=== PATIENT | female | born 1990 | race Caucasian/White ===

== ENCOUNTER 2018-12-07 13:11 | Emergency (ER) | payer OTHER ==
--- NOTE | 2018-12-07 16:01 | ED Physician Documentation ---
History of Present Illness - Stated complaint Stated Complaint: ALLERGIC REACTION - Chief complaint Chief Complaint: Allergic Rx - Additonal information Additional information: hx from pt shortly after eating lunch developed rash itchign and scratchy throat came to ED thankfully sx subsided not sure what she ight have reacted to no prior allergies no new food lotions deterg etc otherwise healthy Review of Systems Constitutional: denies: Fever Ears: denies: Ear pain Throat: reports: Other (scratchy throat) Cardiac: denies: Chest pain / pressure, Palpitations Respiratory: denies: Dyspnea, Cough GI: denies: Abdominal Pain : denies: Now EGA Skin: reports: Rash PD PAST MEDICAL HISTORY - Past Medical History Past Medical History: No Cardiovascular: None Respiratory: None Neuro: None Endocrine/Autoimmune: None GI: None COUNSELOR SUPERVISOR: None : None HEENT: None Psych: None Musculoskeletal: None Derm: None - Past Surgical History Past Surgical History: No - Present Medications Home Medications: Ambulatory Orders Medication Instructions Recorded Confirmed Loratadine [Claritin] 10 mg PO DAILY #2 tablet 12/07/18 predniSONE [Deltasone] 60 mg PO DAILY 2 Days #6 tablet 12/07/18 - Allergies Allergies/Adverse Reactions: Allergies Allergy/AdvReac Type Severity Reaction Status Date / Time No Known Drug Allergies Allergy Verified 12/07/18 15:01 - Social History Does the pt smoke?: No Smoking Status: Never smoker Does the pt drink ETOH?: Yes ETOH Use: Wine Does the pt have substance abuse?: No - Immunizations Immunizations are current?: Yes - POLST Patient has POLST: No PD ED PE NORMAL - Vitals Vital signs reviewed: Yes - HEENT HEENT: Other (no oral edema) - Neck Neck: Supple, no meningeal sign - Cardiac Cardiac: RRR - Respiratory Respiratory: No respiratory distress, Clear bilaterally - Abdomen Abdomen: Soft, Non tender - Derm Derm: Normal color, No rash, Other (per cell phone pic 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, no petecchiae or purpura) - Neuro Neuro: Alert and oriented X 3 Results - Vitals Vitals: Vital Signs - 24 hr 12/07/18 13:16 Temperature 36.6 C Heart Rate 91 Respiratory 16 Rate Blood Pressure 119/44 L O2 Saturation 98 Oxygen O2 Source Room air Departure - Departure Disposition: 01 Home, Self Care Clinical Impression: Allergic reaction Qualifiers: Encounter type: initial encounter Qualified Code(s): T78.40XA - Allergy, unspecified, initial encounter Condition: Good Instructions: ED Allergic Reaction General Other Prescriptions: Loratadine [Claritin] 10 mg PO DAILY #2 tablet predniSONE [Deltasone] 60 mg PO DAILY 2 Days #6 tablet Comments: I am not sure what you had an allergic reaction to. Thankfully you are getting better on your own I have prescribed medication for you to take once a day for three days. If you have more reactions you should see an national park ranger to be skin tested Return if worse Forms: Activity restrictions
[2018-12-07] MEDS ORDERED: predniSONE 20 MG TABLET PO STA (16:03)
[2018-12-07 16:04] VITALS: BP 115/72
== END 2018-12-07 16:23 | disposition home or self-care (01) ==
LOC: ED 13:11
DX: T78.40XA Allergy, unspecified, initial encounter (principal)
CPT/HCPCS: 99283; J7512

== ENCOUNTER 2019-04-02 11:02 | Outpatient (CLI) | payer OTHER | END 2019-04-02 11:03 | disposition home or self-care (01) | LOC: SC 11:02 | PROVIDERS: ATTEND Internal Medicine Pulmonary Disease | DX: G47.10 Hypersomnia, unspecified (principal); R06.83 Snoring; G47.8 Other sleep disorders; R41.89 Other symptoms and signs involving cognitive functions and awareness; R51 Headache; R06.81 Apnea, not elsewhere classified; E66.9 Obesity, unspecified; Z68.30 Body mass index [BMI] 30.0-30.9, adult | CPT/HCPCS: 99203; 99212 ==

== ENCOUNTER 2019-04-20 20:35 | Outpatient (CLI) | payer OTHER | END 2019-04-20 20:36 | disposition home or self-care (01) | LOC: SC 20:35 | PROVIDERS: ATTEND Internal Medicine Pulmonary Disease | DX: G47.33 Obstructive sleep apnea (adult) (pediatric) (principal); E66.9 Obesity, unspecified; Z68.30 Body mass index [BMI] 30.0-30.9, adult | CPT/HCPCS: 95811 ==

== ENCOUNTER 2019-06-11 13:10 | Outpatient (CLI) | payer OTHER ==
--- NOTE | 2019-06-11 13:36 | CONSULTATION NOTE ---
Information from patient questionnaire entered by Dedra Grove. I have reviewed and concur with the information entered by Dedra Grove. This document represents the service I personally performed and the decisions made by me, Lina Serrano MD, [facility]. - History of Present Illness returned for follow up of the split-night polysomnography she had on 04/20/2019. The polysomnography showed the following: The quality of the study is good. CPAP was initiated 147.7 minutes into the study and titrated up from 4 cmH2O and titrated up to CPAP at 8 cmH2O. DIAGNOSTIC: The patient had normal sleep efficiency. The sleep architecture was abnormal for sleep fragmentation and reduced amount of time spent in REM sleep. Respiratory monitoring showed very severe obstructive sleep apnea-hypopnea (AHI = 62.6) associated with frequent arousals, oxyhemoglobin desaturation and mild hypoxia (carisa oxygen saturation of 83%). The patient only slept supine during this study. Snoring was loud in intensity. There was no significant periodic limb movement of sleep. THERAPEUTIC: CPAP at 8 cmH2O appeared to be optimal (AHI of 0 per hour on the pressure). There was supine REM sleep on the pressure. Oxygen saturation was normal throughout the night. Lower CPAP settings allowed a few residual respiratory events. The patient appeared to have tolerated positive airway pressure therapy very well. The patients sleep efficiency was normal. The sleep architecture was normal. There was no significant periodic limb movement of sleep. Cardiac rhythm was normal sinus rhythm without significant arrhythmia. No abnormal behavior (parasomnia) observed during the night. The patient was informed of these findings. I explained to her the pathophysiology behind obstructive sleep apnea. We then spent quite a bit of time discussing different treatment options. For mild obstructive sleep apnea, surgery and oral appliance are alternatives to nasal CPAP therapy but in moderate or severe cases, nasal CPAP is the most effective and reliable treatment. After some discussion, she opted to go with the nasal CPAP therapy. I explained to her how CPAP machine works and what to expect when using the machine. She is encouraged to use CPAP every night especially in the first 2 to 3 nights in order to get used to it. She should call me or her CPAP supplier to discuss any mechanical problem that may occur. If she snores while wearing the CPAP or feels like she needs more air from the machine, she should notify me and I will increase the pressure. Initial Lucas Sleepiness Scale score: 7 Current Lucas Sleepiness Scale score: 16 - Allergies/Medications Allergies and home medications reviewed: Yes - Review of Systems Review of systems same as previous: Yes - Impression 1. Obstructive Sleep Apnea-Hypopnea Syndrome, very severe, associated with mild hypoxemia and sleep fragmentation. Obviously this is the cause of the patients symptoms of frequent awakenings, unrefreshed sleep, and excessive daytime sleepiness. As mentioned above, the patient will be started on autoCPAP set at 4 - 8 cmH2O. I anticipate good treatment compliance. - Plan 1. Prescription made for an autoCPAP with heated humidifier 2. Attempt to lose weight. 3. Be careful when driving until her sleepiness resolves completely on nasal CPAP therapy. 4. Return in one month for follow up. I will assess her response and compliance at that time.
== END 2019-06-11 13:11 | disposition home or self-care (01) ==
LOC: SC 13:10
PROVIDERS: ATTEND Internal Medicine Pulmonary Disease
DX: G47.33 Obstructive sleep apnea (adult) (pediatric) (principal)
CPT/HCPCS: 99212; 99213

== ENCOUNTER 2021-04-23 12:09 | Emergency (ER) | payer OTHER ==
--- NOTE | 2021-04-23 12:49 | XRAY Report ---
PROCEDURE: Foot 3 View RT INDICATIONS: footpain after running; hx of plantar fascitis TECHNIQUE: 3 views of the foot were acquired. COMPARISON: None FINDINGS: Bones: No fractures or dislocations. No suspicious bony lesions. Small plantar calcaneal bone spur. Soft tissues: No tibiotalar joint effusion. Achilles tendon appears normal. IMPRESSION: No fracture. No osseous lesion. If there are persistent symptoms or continued clinical concern for pa thology, then repeat plain film radiographs (7-10 days) or advanced imaging (CT, MR, bone scan) shoul d be considered for further evaluation. Reviewed by: Roxanne Bradshaw MD, PhD on 04/23/2021 12:48 PM PDT Approved by: Roxanne Bradshaw MD, PhD on 04/23/2021 12:48 PM PDT Station ID: [id number]
--- NOTE | 2021-04-23 13:21 | ED Physician Documentation ---
History of Present Illness - Stated complaint Stated Complaint: RT FOOT PAIN - Chief complaint Chief Complaint: Ext Problem - Additonal information Additional information: 30-year-old female presents the emergency department for evaluation of acute right foot pain that she suspects may be plantar fasciitis. She Denies any inciting event yesterday during the run but this morning when she woke up she had a lot of pain in the bottom of her heel that radiated to the forefoot and up the ankle. No swelling or deformity. She is in the [place] wears boots during the day but often climbs ladders and her job duties. Review of Systems Constitutional: reports: Reviewed and negative Eyes: reports: Reviewed and negative Nose: reports: Reviewed and negative Throat: reports: Reviewed and negative Cardiac: reports: Reviewed and negative Respiratory: reports: Reviewed and negative GI: reports: Reviewed and negative : reports: Reviewed and negative Skin: reports: Reviewed and negative Musculoskeletal: reports: Extremity pain (right foot) PD PAST MEDICAL HISTORY - Past Medical History Cardiovascular: None Respiratory: None Neuro: None Endocrine/Autoimmune: None GI: None CAR WASH ATTENDANT: None : None HEENT: None Psych: None Musculoskeletal: None Derm: None - Past Surgical History Past Surgical History: No - Present Medications Home Medications: Ambulatory Orders Medication Instructions Recorded Confirmed Loratadine [Claritin] 10 mg PO DAILY #2 tablet 12/07/18 predniSONE [Deltasone] 60 mg PO DAILY 2 Days #6 tablet 12/07/18 Fexofenadine HCl [Cait Allergy] 1 tab ORAL PRN PRN 05/30/19 05/30/19 - Allergies Allergies/Adverse Reactions: Allergies Allergy/AdvReac Type Severity Reaction Status Date / Time No Known Drug Allergies Allergy Verified 04/23/21 12:12 - Social History Does the pt smoke?: No Smoking Status: Never smoker Does the pt drink ETOH?: Yes Does the pt have substance abuse?: No - Immunizations Immunizations are current?: Yes - POLST Patient has POLST: No PD ED PE EXPANDED - General General: Alert, No acute distress - Extremities Extremities: Right foot (No swelling or erythema. There is tenderness on the sole of the foot from the heel to the ball. Patient has a normal gait. Full range of motion at the ankle joint. 2+ DP pulse.) Results - Vitals Vitals: Vital Signs - 24 hr 04/23/21 12:12 Temperature 36.5 C Heart Rate 96 Respiratory 16 Rate Blood Pressure 133/90 H O2 Saturation 99 Oxygen O2 Source Room air - Rads (name of study) right foot Radiology: Final report received (No acute findings.) PD MEDICAL DECISION MAKING - ED course Complexity details: reviewed results, re-evaluated patient, d/w patient ED course: 30-year-old female presents emergency department for evaluation of right foot pain after running yesterday. X-ray shows no fracture however she has pain along the plantar fascia area without swelling or erythema. Her exam is consistent with plantar fasciitis. At the bedside we did cross taper the foot to help support the plantar fascia and she felt that it improved her symptoms. I have encouraged her to continue follow-up with [facility] as this seems to be a recurrent problem she may benefit from referral to podiatry. Emergent return precautions were discussed. Departure - Departure Disposition: 01 Home, Self Care Clinical Impression: Plantar fasciitis of right foot Condition: Stable Record reviewed to determine appropriate education?: Yes Instructions: Plantar Fasciitis Tx Comments: Janee you were seen in the emergency department today for evaluation of right foot pain. As we discussed at the bedside your history and exam is consistent with plantar fasciitis. Since this seems to be a recurrent problem you would benefit from referral to a freezing machine operator. Please discuss this with [facility]. I do recommend that you take ibuprofen with food 3 times a day for foot pain. I would also like you to try and taper your foot as shown in the emergency department when out of bed. Return to the emergency department for fevers, foot swelling, redness or any other emergent concerns.
[2021-04-23 13:29] VITALS: BP 109/68
== END 2021-04-23 13:28 | disposition home or self-care (01) ==
LOC: ED 12:09
DX: M72.2 Plantar fascial fibromatosis (principal)
CPT/HCPCS: 99283

== ENCOUNTER 2023-08-10 14:59 | Outpatient (CLI) | payer OTHER ==
--- NOTE | 2023-08-10 15:40 | Sleep Patient Instructions ---
Sleep Center Visit Summary - Patient Visit Information Reason for Visit: Initial consult for evaluation of sleep disordered breathing and other sleep issues. - Patient Instructions Instructions Attached: Sleep Study, Sleep Clinic Visit, Sleep Study Home Monitor Additional Instructions: You will be completing a sleep study, either an in-lab polysomnography (PSG) or home sleep study (HST). You will follow-up in the sleep care office after the sleep study is completed to hear the results and talk about therapy, if needed. You will be called by our office staff to schedule this appointment, but you may contact us with any questions. - Clinic Information Contact: [facility] [address] [place] [address] [email or web address] T: [phone]
--- NOTE | 2023-08-10 15:46 | SLEEP CARE CONSULTATION ---
Information from patient questionnaire entered by Basim Rocha. I have reviewed and concur with the information entered by Basim Rocha. This document represents the service I personally performed and the decisions made by me, Pilar Salvador ARNP. History of Present Illness Service Date and Time: 08/10/2023 1459 Reason for Visit: New patient, Previously diagnosed sleep apnea Chief Complaint: reports: Insomnia, Unrefreshed sleep, Snoring, Excessive daytime sleepiness, Observed pauses in breathing, Fatigue, Frequent awakenings at night Date of Onset: 4YRS Usual bedtime: VARIES Time it takes to fall asleep: SOMETIMES RIGHT AWAY SOMETIMES HRS Snores at night: Yes Observed to quit breathing while asleep: Yes Sleeps alone due to snoring: No Number of times waking at night: 2-3 Reasons for waking at night: reports: Gasping for air, Other (UNKNOWN). denies: Choking, Snoring Toss, Turn, or Twitch while sleeping: Yes Recalls having dreams: Yes Usually gets out of bed at: VARIES Feels refreshed in the morning: No Morning headache: Yes (2-3 times a week; last about a couple hours in the morning) Sleepy or fatigued during the day: Yes Ever fallen asleep while driving: No Takes day naps: Yes (with day shift, will take nap daily for an hour) Dreams during day naps: No Prior sleep studies: Yes Year and Where: 2017 [facility] Additional HPI information: I had the pleasure of seeing KENY ANGUIANO today regarding the possibility of her having a sleep disorder. She had a previous sleep study dated 04/20/2019 here at [facility] showing very severe obstructive sleep apnea with AHI of 62.6 but was never set up with a PAP machine. 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 She is now returning to try and get things done. Her current complaints are sleepiness, fatigue, frequent night awakenings, insomnia, observed pauses in breathing, headache, snoring and unrefreshed sleep. She is in the and her work schedule shifts from day to night, her sleep schedule also varies. She states she does not wake up feeling rested and she is always tired throughout the day. She has no energy to do things like exercise. She wakes up throughout the night and sometimes is not able to sleep at all for hours. - Parasomnia Symptoms Ever been unable to move upon waking from sleep: No Walks in sleep: No Talks in sleep: No Ever acted out dreams in sleep: No Ever felt weak in the knees when startled or emotional: No Bothered by creepy, crawly, restless sensations in legs: No Problems with memory or concentration: Yes (concentration mostly) Subjective Initial Gibson Sleepiness Scale score: 16 (08/10/23) Past Medical History Past Medical History: reports: Other (no significant medical history) Social History The patient's occupation is a AM. Patient is and lives in . Have you smoked in the past 12 months: No Alcohol use: No Caffeine use: Yes Caffeine amount and frequency: 2 CUPS COFFEE DAILY Family History Family history of sleep disordered breathing: Yes Family Hx Sleep Apnea: Father: Snoring, Sleep apnea - Untreated Allergies and Home Medications Known drug allergies: No Drug allergies reviewed: Yes Home medication list reviewed: Yes Allergy and home medication list: Allergies No Known Drug Allergies Allergy (Verified 08/09/23 14:21) Home Medications Medication Instructions Recorded Confirmed Last Taken Type No Known Home Medications 08/10/23 08/10/23 Unknown History Review of Systems Weight gain over past 5 years: 30 Cardiovascular: denies: high blood pressure Gastrointestinal: denies: heartburn Neurological: reports: headaches Psychiatric: denies: anxiety, depression Ear/Nose/Throat: reports: wisdom teeth removed. denies: tonsillectomy Endocrine: denies: thyroid disease Immunologic: denies: allergies to food or environment Physical Exam Vital signs obtained and entered by: BASIM Maya MA Blood Pressure: 166/101 (LEFT) Cuff size: wrist Heart Rate: 92 O2 Saturation: 98 Height: 5 ft 3 in Weight: 195 lb 3.2 oz Body Mass Index: 34.5 BMI Classification: Obese Neck circumference: 16.25 Mouth and throat: narrow oropharynx Soft palate: long Hard palate: normal Uvula: normal Uvula visualization: 25% Mallampati Class III Tongue: enlarged in size with teeth rothman on lateral edges Tonsils: 2+ Neck: normal w/o lymphadenopathy or thyromegaly Heart: regular rate and rhythm Lungs: clear bilaterally Impression and Plan 1. Suspected Obstructive Sleep Apnea-Hypopnea Syndrome, as previously diagnosed and as still suggested by a history of loud and irregular snoring, observed cessation of breath while asleep, gasping or choking in sleep, morning headache, frequent awakening during the night, unrefreshed sleep, cognitive impairment, and excessive daytime sleepiness. I recommend proceeding to polysomnography to confirm the diagnosis and to assess severity. If the patient has significant sleep disordered breathing, a manual CPAP titration study will also be performed to find the optimal treatment pressure. I informed the patient of what the sleep studies involve and after some discussion, obtained agreement to proceed. The pathophysiology of obstructive sleep apnea-hypopnea syndrome was discussed with the patient and health risks of cardiovascular and cerebrovascular disease if not treated. Risks of drowsy driving discussed in detail and patient advised to avoid long distance driving and to tie puller at the first sign of drowsiness. Patient agreed to plan. * Schedule polysomnography. * Avoid long distance driving or driving when feeling sleepy. * Avoid alcohol, sedative and muscle relaxant around bedtime. * Attempt to lose weight. * Review instructions provided by trained office staff on how to prepare for the sleep study. * Return for follow-up after sleep study completed. Counseling Topics: Weight loss health impact Visit Type: In Office Time Spent with Patient (minutes): 31 Provider Statement: I spent 100% of the Face to Face Visit with the patient with greater than 50% spent counseling the patient and coordination of care.
[2023-08-10 15:48] VITALS: BP 166/101; O2SAT 98
== END 2023-08-10 15:00 | disposition home or self-care (01) ==
LOC: SC 14:59
PROVIDERS: ATTEND Nurse Practitioner Family
DX: G47.33 Obstructive sleep apnea (adult) (pediatric) (principal); E66.9 Obesity, unspecified; Z68.34 Body mass index [BMI] 34.0-34.9, adult
CPT/HCPCS: 99203; 99212

== ENCOUNTER 2023-08-31 12:43 | Outpatient (CLI) | payer OTHER | END 2023-08-31 12:44 | disposition home or self-care (01) | LOC: SC 12:43 | PROVIDERS: ATTEND Nurse Practitioner Family | DX: G47.33 Obstructive sleep apnea (adult) (pediatric) (principal); R09.02 Hypoxemia; E66.9 Obesity, unspecified; Z68.34 Body mass index [BMI] 34.0-34.9, adult | CPT/HCPCS: 95806 ==

== ENCOUNTER 2023-09-23 14:16 | Outpatient (CLI) | payer OTHER ==
--- NOTE | 2023-09-23 14:48 | Sleep Patient Instructions ---
Sleep Center Visit Summary - Patient Visit Information Reason for Visit: Sleep Study Followup - Patient Instructions Additional Instructions: You are being started on CPAP therapy with pressure setting at 5-20 cmH2O. You will need to call the sleep care office to set up your follow up once you have your APAP machine and we will schedule a visit to check compliance and response to therapy at that time. You may call the office with any concerns about pressure feeling too low or too much for adjustment, if needed. You should contact DME supplier for any questions or concerns about mask or equipment. 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 - Clinic Information Contact: [facility] [address] [place] [address] [email or web address] T: [phone]
[2023-09-23 15:10] VITALS: BP 126/78; O2SAT 99
--- NOTE | 2023-09-23 15:10 | SLEEP CARE CONSULTATION ---
Information from patient questionnaire entered by Sarah Rocha. I have reviewed and concur with the information entered by Sarah Rocha. This document represents the service I personally performed and the decisions made by , Pilar Salvador ARNP. History of Present Illness Service Date and Time: 09/23/2023 141 Initial Montgomery Sleepiness Scale score: 16 (08/10/23) Current [place] Sleepiness Scale score: 12 (09/23/23) Additional HPI information: KENY ANGUIANO returns for follow up and results of the recently performed home sleep study. The sleep study showed very severe obstructive sleep apnea with an average AHI of 84.7 and carisa oxygen saturation of 70%. I explained the pathophysiology behind obstructive sleep apnea. We then spent quite a bit of time discussing different treatment options. For mild obstructive sleep apnea, surgery and oral appliance are alternatives to nasal CPAP therapy but in moderate or severe cases, nasal CPAP is the most effective and reliable treatment. I reviewed the impact of weight changes on sleep apnea and strongly recommended losing weight. After some discussion, the patient opted to go with the nasal CPAP therapy. Nasal autoCPAP set at 5-20 cmH20 will be ordered with rationale explained. A manual titration study will be ordered if unable to find optimal pressure with office adjustments. I explained how CPAP machine works and what to expect when using the machine. Using CPAP every night in order to get used to it was emphasized. Patient advised to put CPAP mask on before getting into bed so as not to fall asleep without CPAP. To assist acclimation to CPAP use, it could also be used for a short time during day while reading or watching TV. Patient does not drink alcohol. Patient was cautioned about risks of drowsy driving until sleepiness symptoms resolve. Patient denies drowsy driving. Sleep Study - Results Type of Sleep Study: Home sleep study (COMPLETED 08/31/23) Prior sleep studies: Yes Year and Where: 2017 [facility] Polysomnography/Home Sleep Study results: Physician Impression: The quality of the study is good. The length of the study is adequate (> 240 minutes). Please also see the tabulated and graphic data. 1. Obstructive Sleep Apnea-Hypopnea (ICD-10 G47.33), very severe, with an AHI of 84.7/hr and carisa SaO2 of 70%. During the study, the patient had 654 apneas (654 obstructive, 0 central, 0 mixed) and 74 hypopneas. The longest episode lasted 111.5 seconds. The respiratory events occurred more frequently during supine sleep (supine AHI was 93.5 and non-supine, 62.71). 2. Hypoxemia (ICD-10 R09.02), moderate, with the lowest oxygen saturation of 70 % and 151.1 minutes with SaO2 under 90%. Baseline oxygen saturation was normal (Average oxygen saturation was 92%). Allergies and Home Medications Known drug allergies: No Drug allergies reviewed: Yes Home medication list reviewed: Yes (trazodone added) Allergy and home medication list: Allergies No Known Drug Allergies Allergy (Verified 09/22/23 12:58) Home Medications Medication Instructions Recorded Confirmed Last Taken Type traZODone [Desyrel] See Rx Instructions .ROUTE .COMPLEX 09/23/23 09/23/23 U nkvincewobey History Review of Systems Review of systems same as previous: Yes (NO CHANGE) Physical Exam Vital signs obtained and entered by: SARAH Maya MA Blood Pressure: 126/78 (LEFT ARM) Cuff size: regular Heart Rate: 108 O2 Saturation: 99 Height: 5 ft 3 in Weight: 198 lb 12.8 oz Body Mass Index: 35.2 BMI Classification: Obese Impression and Plan 1. Obstructive Sleep Apnea-Hypopnea Syndrome, very severe, with lowest oxygen saturation of 70%. Obviously this is the cause of the patients symptoms of unrefreshed sleep, and excessive daytime sleepiness. As mentioned above, the patient will be started on nasal autoCPAP therapy with pressure set at 5-20 cmH2 O. Compliance guidelines also reviewed. A copy of compliance guidelines will be given for reference at check out. 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 She is afraid she will not be able to get the new machine before she leaves. She is deploying for 6 months. She would have to restart process to get CPAP if it is over 6 months. I set her up with a loaner re-certified [employer] machine to start using until she is able to obtain her new machine. She will return the loaner CPAP when back in town. She voiced understanding and agreement with plan. 2. Hypoxemia, moderate, with a carisa oxygen saturation of 70% and 151.1 minutes spent under 90%. The baseline oxygen saturation was normal with an average oxygen saturation of 92%. 3. Obesity, unspecified. Currently patients BMI is 35.2. Obesity increases the risk of apnea, CPAP pressure requirements and overall health risks especially cardiovascular and diabetes. Thus patient is advised to lose weight. * Nasal auto CPAP therapy, pressure at 5-20 cm H2O. * Attempt to lose weight. * Avoid alcohol consumption near bedtime. * Avoid supine sleep until using CPAP. * The patient is again cautioned about driving until sleepiness completely resolves. * Return one month after CPAP obtained. I will assess response to therapy and compliance at that time. Counseling Topics: Weight loss health impact Prescriptions: Auto CPAP, Device supplies Visit Type: In Office Time Spent with Patient (minutes): 28 Provider Statement: I spent 100% of the Face to Face Visit with the patient with greater than 50% spent counseling the patient and coordination of care.
== END 2023-09-23 14:17 | disposition home or self-care (01) ==
LOC: SC 14:16
PROVIDERS: ATTEND Nurse Practitioner Family
DX: G47.33 Obstructive sleep apnea (adult) (pediatric) (principal); R09.02 Hypoxemia; E66.9 Obesity, unspecified; Z68.35 Body mass index [BMI] 35.0-35.9, adult
CPT/HCPCS: 99212; 99213